=== PATIENT | male | born 1940 | race American Indian/Alaskan Native ===

== ENCOUNTER 2018-06-06 09:22 | Outpatient (CLI) | payer MEDICARE ==
[2018-06-06 10:24] LABS: Basophils % (Auto) 0.6 % (0.0-1.8); Eosinophils # (Auto) 0.2 K/mm3 (0.0-0.4); Eosinophils % (Auto) 2.5 % (0.0-4.3); Hematocrit 44.5 % (35.5-45.6); Hemoglobin 14.2 gm/dl (11.8-15.2); Lymphocytes # (Auto) 1.6 K/mm3 (1.2-5.4); Lymphocytes % (Auto) 19.2 % (13.4-35.0); Mean Corpuscular HGB Conc 32 % (32-34); Mean Corpuscular Volume 77 fl (84-94); Monocytes % (Auto) 11.8 % (0.0-7.3); Platelet Count 220 K/mm3 (140-440); Red Blood Count 5.75 M/mm3 (3.65-5.03); Red Cell Distribution Width 18.7 % (13.2-15.2)
[2018-06-06 11:56] LABS: Albumin 4.5 g/dL (3.9-5); Calcium 10.4 mg/dL (8.4-10.2); Chol/HDL Ratio 2.84 %
== END 2018-06-06 09:23 | disposition home or self-care (01) ==
LOC: LAB 09:22
PROVIDERS: ATTEND Internal Medicine
DX: Z00.01 Encounter for general adult medical examination with abnormal findings (principal); E11.9 Type 2 diabetes mellitus without complications; I10 Essential (primary) hypertension; E78.2 Mixed hyperlipidemia
CPT/HCPCS: 36415; 80053; 80061; 83036; 85025

== ENCOUNTER 2018-09-18 09:02 | Outpatient (CLI) | payer MEDICARE ==
[2018-09-18 10:43] LABS: Albumin 4.5 g/dL (3.9-5); Calcium 10.3 mg/dL (8.4-10.2)
== END 2018-09-18 09:03 | disposition home or self-care (01) ==
LOC: LAB 09:02
PROVIDERS: ATTEND Internal Medicine
DX: I12.9 Hypertensive chronic kidney disease with stage 1 through stage 4 chronic kidney disease, or unspecified chronic kidney disease (principal); E11.22 Type 2 diabetes mellitus with diabetic chronic kidney disease; N18.9 Chronic kidney disease, unspecified
CPT/HCPCS: 36415; 80053; 83036

== ENCOUNTER 2018-12-28 09:14 | Outpatient (CLI) | payer MEDICARE ==
[2018-12-28 11:16] LABS: Calcium 11.1 mg/dL (8.4-10.2); Chol/HDL Ratio 2.34 %
== END 2018-12-28 09:15 | disposition home or self-care (01) ==
LOC: LAB 09:14
PROVIDERS: ATTEND Internal Medicine
DX: E78.5 Hyperlipidemia, unspecified (principal); N18.9 Chronic kidney disease, unspecified; E11.22 Type 2 diabetes mellitus with diabetic chronic kidney disease
CPT/HCPCS: 36415; 80048; 80061; 83036

== ENCOUNTER 2019-01-11 11:43 | Outpatient (CLI) | payer MEDICARE | END 2019-01-11 11:44 | disposition home or self-care (01) | LOC: LAB 11:43 | PROVIDERS: ATTEND Internal Medicine | DX: E83.52 Hypercalcemia (principal) | CPT/HCPCS: 36415; 82330; 83970 ==

== ENCOUNTER 2019-04-24 13:04 | Outpatient (CLI) | payer MEDICARE ==
--- NOTE | 2019-04-24 14:06 | XRay Report ---
LUMBAR SPINE 5 VIEWS. INDICATION / CLINICAL INFORMATION: M51.36 Other intervertebral disc degeneration, lumbar region COMPARISON: None available. FINDINGS: BONES / JOINT(S): Mild dextroconvex scoliosis. Negative for vertebral compression. Mild degenerative disc disease is greatest at L5-S1. SOFT TISSUES: Atherosclerotic vascular calcification. ADDITIONAL FINDINGS: None. Signer Name: Dov Vogel MD Signed: 04/24/2019 2:02 PM Workstation Name: [id number]
== END 2019-04-24 13:05 | disposition home or self-care (01) ==
LOC: XRAY 13:04
PROVIDERS: ATTEND Psychiatry & Neurology Neurology
DX: M51.37 Other intervertebral disc degeneration, lumbosacral region (principal); M47.817 Spondylosis without myelopathy or radiculopathy, lumbosacral region; M41.86 Other forms of scoliosis, lumbar region; G82.20 Paraplegia, unspecified; E11.40 Type 2 diabetes mellitus with diabetic neuropathy, unspecified
CPT/HCPCS: 72110

== ENCOUNTER 2019-06-20 09:16 | Outpatient (CLI) | payer MEDICARE ==
--- NOTE | 2019-06-20 12:07 | Ultrasound Report ---
ULTRASOUND SOFT TISSUE HEAD AND NECK HISTORY: Hypercalcemia TECHNIQUE: Grayscale ultrasound with color Doppler imaging. FINDINGS: The right thyroid lobe measures 4.3 x 1.5 x 1.6 cm. The left thyroid lobe measures 4.3 x 1.3 x 1.7 cm . The thyroid isthmus measures 0.4 cm. No evidence for mass, cyst or calcifications. No obvious abnor mality in the parathyroid gland regions. IMPRESSION: Unremarkable exam. Signer Name: Og Tovar Jr, MD Signed: 06/20/2019 12:02 PM Workstation Name: [id number]
--- NOTE | 2019-06-20 12:11 | Ultrasound Report ---
LIMITED RUQ ABDOMINAL ULTRASOUND INDICATION: R74.0Nonspecific elevation of levels of transaminase and lactic a. COMPARISON: No relevant prior imaging study available. FINDINGS: Pancreas: Visualized portions show no significant abnormality. Abdominal Aorta: No significant abnormality. IVC: No significant abnormality. Liver: The liver measures 13.4 cm in length. No significant abnormality. Normal hepatopedal blood fl ow in the main portal vein. Gallbladder: No significant abnormality. Bile ducts: No significant abnormality. Common bile duct measures 2.5 mm. Right kidney: The right kidney measures 9.2 cm and contains multiple simple appearing cysts with the largest measuring 4.7 cm laterally. No hydronephrosis.. Free fluid: None. Additional Findings: None. IMPRESSION: Unremarkable liver and biliary system. Right renal cysts. Signer Name: Og Tovar Jr, MD Signed: 06/20/2019 12:07 PM Workstation Name: [id number]
== END 2019-06-20 09:17 | disposition home or self-care (01) ==
LOC: US 09:16
PROVIDERS: ATTEND Internal Medicine
DX: N28.1 Cyst of kidney, acquired (principal); E83.52 Hypercalcemia; R74.0 Nonspecific elevation of levels of transaminase and lactic acid dehydrogenase [LDH]
CPT/HCPCS: 76536; 76705